=== PATIENT | female | born 1980 | race Caucasian/White ===

== ENCOUNTER 2016-12-05 01:35 | Emergency (ER) | payer BC ==
[2016-12-05 02:24] LABS: Urine Bacteria Absent (Absent); Urine Bilirubin Negative (Negative); Urine Glucose Negative (Negative); Urine Nitrite Negative (Negative)
[2016-12-05] MEDS ORDERED: Phenazopyridine TAB* 100 MG PO ONE (02:48)
[2016-12-05] MEDS ORDERED: Ciprofloxacin TAB* 500 MG PO ONE (02:48)
[2016-12-05 02:58] VITALS: BP 132/74
--- NOTE | 2016-12-05 05:09 | ED ---
Naomi Villegas Alok, scribed for Sami Boss MD on 12/05/16 at 0251 . GI/ HPI - HPI Summary HPI Summary: 36F presents to the ED with sudden onset of urethra pain at 1700 followed by dysuria and hematuria throughout the day. Pt also notes chills. Pt denies vaginal discharge. Pt denies fever or back pain. PMHx includes h/o UTI last had 10/10/16 feeling similar to symptoms today. Pt LMP ended 4 days ago. Pt drinks ETOH occasionally. - History of Current Complaint Chief Complaint: EDUrogenitalProblems Time Seen by Provider: 12/05/16 02:39 Stated Complaint: BLOOD IN URINE/EDGE TO URINATE Hx Obtained From: Patient Onset/Duration: Started Days Ago, Atraumatic, Still Present Timing: Constant Severity: Moderate Current Severity: Moderate Pain Intensity: 8 Location of Pain: Groin - urethra Associated Signs and Symptoms: Positive: Hematuria, Dysuria, Chills, Other: - urethra pain. Negative: Back Pain, Fever Additional Signs & Symptoms: Negative: Vaginal Discharge Aggravating Factor(s): Nothing Alleviating Factor(s): Nothing - Allergy/Home Medications Allergies/Adverse Reactions: Allergies Allergy/AdvReac Type Severity Reaction Status Date / Time Fluconazole [From Diflucan] Allergy See Comment Verified 12/05/16 01:48 Bananas Allergy Intermediate See Comment Uncoded 04/22/12 08:32 Potatoes Allergy Intermediate See Comment Uncoded 04/22/12 08:32 PMH/Surg Hx/FS Hx/Imm Hx Endocrine/Hematology History: Denies: Hx Diabetes, Hx Thyroid Disease Cardiovascular History: Denies: Hx Hypertension Respiratory History: Denies: Hx Asthma, Hx Chronic Obstructive Pulmonary Disease (COPD) GI History: Denies: Hx Ulcer - Surgical History Surgery Procedure, Year, and Place: Tonsil abscess dained. Infectious Disease History: No Infectious Disease History: Denies: Hx Hepatitis, Hx Human Immunodeficiency Virus (HIV), Traveled Outside the [place] in Last 30 Days - Family History Known Family History: Negative: Cardiac Disease, Hypertension, Diabetes - Social History Occupation: Employed Full-time Lives: With Family Alcohol Use: Rare Substance Use Type: Reports: None Smoking Status (MU): Never Smoked Tobacco Review of Systems Positive: Chills. Negative: Fever Positive: dysuria, hematuria, pain - urethra Negative: Other - back pain All Other Systems Reviewed And Are Negative: Yes Physical Exam - Summary Physical Exam Summary: The patient is well-nourished in no acute distress and in no acute pain. The skin is warm and dry and skin color reflects adequate perfusion. HEENT: The head is normocephalic and atraumatic. The pupils are equal and reactive. The conjunctivae are clear and without drainage. Nares are patent and without drainage. Mouth reveals moist mucous membranes and the throat is without erythema and exudate. The external ears are intact. The ear canals are patent and without drainage. The tympanic membranes are intact. Neck is supple with full range of motion and non-tender. There are no carotid bruits. There is no neck vein distension. Respiratory: Chest is non-tender. Lungs are clear to auscultation and breath sounds are symmetrical and equal. Cardiovascular: Heart is regular rate and rhythm. There is no murmur or rub auscultated. There is no peripheral edema and pulses are symmetrical and equal. Abdomen: The abdomen is soft and non-tender. There are normal bowel sounds heard in all four quadrants and there is no organomegaly palpated. No pain over bladder. Musculoskeletal: There is no back pain noted. Extremities are non-tender with full range of motion. There is good capillary refill. There is no peripheral edema or calf tenderness elicited. Neurological: Patient is alert and oriented to person, place and time. The patient has symmetrical motor strength in all four extremities. Cranial nerves are grossly intact. Deep tendon reflexes are symmetrical and equal in all four extremities. Psychiatric: The patient has an appropriate affect and does not exhibit any anxiety or depression. Triage Information Reviewed: Yes Vital Signs On Initial Exam: Initial Vitals Temp Pulse Resp BP Pulse Ox 98.8 F 70 18 120/77 99 12/05/16 01:46 12/05/16 01:46 12/05/16 01:46 12/05/16 01:46 12/05/16 01:46 Vital Signs Reviewed: Yes Diagnostics - Vital Signs Vital Signs Temp Pulse Resp BP Pulse Ox 12/05/16 02:12 98.8 F 70 18 120/77 99 12/05/16 01:46 98.8 F 70 18 120/77 99 - Laboratory Lab Results: Lab Results 12/05/16 Range/Units 01:50 Urine Color Yellow Urine Appearance Cloudy Urine pH 6.0 (5-9) Ur Specific Hitchins 1.017 (1.010-1.030) Urine Protein 2+(100 mg/dl) H (Negative) Urine Ketones Negative (Negative) Urine Blood 3+ H (Negative) Urine Nitrate Negative (Negative) Urine Bilirubin Negative (Negative) Urine Urobilinogen Negative (Negative) Ur Leukocyte Esterase 3+ H (Negative) Urine WBC (Auto) 3+(>20/hpf) H (Absent) Urine RBC (Auto) 3+(>10/hpf) H (Absent) Ur Squamous Epith Cells Present H (Absent) Urine Bacteria Absent (Absent) Urine Glucose Negative (Negative) Lab Statement: Any lab studies that have been ordered have been reviewed, and results considered in the medical decision making process. GIGU Course/Dx - Course Course Of Treatment: 36 y/o female presents with dysuria and hematuria. UA consistent with UTI. Will discharge home with rx for Cipro and Pyridium. - Diagnoses Differential Diagnoses - Female: Cystitis, Urinary Tract Infection Provider Diagnoses: UTI (urinary tract infection) Discharge - Discharge Plan Condition: Stable Disposition: HOME Prescriptions: Ciprofloxacin TAB* [Cipro 500 MG TAB*] 500 mg PO BID #14 tab Phenazopyridine 200 mg (NF) [Pyridium 200 MG tab *] 200 mg PO TID #6 tab Patient Education Materials: Urinary Tract Infection in Women (ED) Referrals: No Primary Care Phys,NOPCP [Primary Care Provider] - The documentation as recorded by the Naomi caro Alok accurately reflects the service I personally performed and the decisions made by Karyn mendoza Drew, MD.
== END 2016-12-05 02:57 | disposition home or self-care (01) ==
LOC: ED 01:35
DX: N39.0 Urinary tract infection, site not specified (principal)
CPT/HCPCS: 81003; 81015; 87077; 87086; 99282; A9270-GY

== ENCOUNTER 2018-12-15 08:20 | Emergency (ER) | payer BC ==
--- OUTSIDE RECORDS SUMMARY | 2018-12-15 08:25 | XMS REPORT | Continuity of Care Document ---
:1980 External Reference #:[id number] Author Name Eva Wooten O.D. Address [address] [place] [address] Care Team Providers Name Role Phone Nia Han M.D. Primary Care Physician Unavailable Payers Date Identification Numbers Payment Provider Subscriber Effective: Policy Number: [id number] [facility] Delmy Stroud 2011 PayID: [id number] [place] [address] Problems Active Problems Provider Date Herpes zoster Nely Damon O.D. Onset: 10/24/2014 Lyme disease Onset: Arthritis Onset: Herpes zoster keratoconjunctivitis All Moreira M.D. Onset: 02/27/2015 Chronic allergic conjunctivitis Eva Wooten O.D. Onset: 12/09/2018 Squamous blepharitis All Moreira M.D. 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 [employer] ETOH Use Occasionally consumed beer in the past Tobacco Use Start: Unknown End: Patient is a former smoker QUIT: 09/20/2016 Unknown Smoking Status Reviewed: 12/09/18 Patient is a former smoker QUIT: 2016 Allergies, Adverse Reactions, Alerts Active Allergies Reaction Severity Comments Date Diflucan 08/16/2014 Potatoes 08/16/2014 Bananas 08/16/2014 Latex 08/16/2014 Tomatoes 05/30/2017 Coconut 05/30/2017 Gold 09/29/2017 Eggs 09/29/2017 Urea 09/29/2017 Medications Active Medications SIG Qnty Indications Ordering Date Provider Olopatadine HCL 1 drop every day 5ml H10.45 Eva Wooten, 12/09/2018 0.1% both eyes as needed O.D. Solution Famciclovir Take 2 Tablets By 60tabs All Garcia 05/31/2016 250mg Mouth Every Day Gloria Moreira Tablets Artificial Tears as needed Eva Wooten, 03/21/2016 O.D. 0.1-0.3% Solution Vitamin C 2 tab by mouth All Garcia 08/15/2014 500mg every day Gloria Moreira Capsules Prednisolone Acetate Instill 1 Drop To 15units All Garcia 07/25/2014 The Right Eye Every Gloria Moreira 1% Suspension Day L-Lysine Unknown 1000mg Tablets Vitamin B12 occasionally Unknown 100mcg Tablets Vitamin D take one Unknown 5000Unit capsule/tablet Tablets daily by mouth Lorazepam prn Unknown 0.5mg Tablets History Medications Erythromycin Apply to all 1Tube H01.021 All Moreira, 10/20/2018 - 5mg/GM four lids at M.DMagdiel 10/22/2018 Ointment bedtime for 3 weeks Autologous Serum prn All Moreira, 02/26/2017 - Gloria 01/28/2018 Famvir take 1 tablet 60tabs Logan 07/25/2014 - 250mg Tablets by mouth twice Gloria De La Garza 08/27/2016 daily Cryselle-28 Unknown - 0.3-30mg-mcg 09/28/2015 Tablets Amoxapine Unknown - 150mg Tablets 09/28/2015 Famotidine Elida, - 40mg Tablets Nadia F.N.P 05/21/2018 Naproxen Elida, - 500mg Tablets Nadia F.N.P 05/27/2018 Cyclobenzaprine HCL Elida, - 10mg Nadia F.N.P 05/27/2018 Tablets Qur-Sf-Fdyzgg Take 1 Tablet Unknown - By Mouth Every 05/20/2018 0.18/0.215/0.25 mg-25 Day mcg Tablets Procedures Date Code Description Status 10/20/2018 27972 Est Patient Intermediate Exam Completed 06/01/2018 41455 Est Patient Intermediate Exam Completed 01/30/2018 33431 Est Patient Intermediate Exam Completed 09/29/2017 90152 Est Patient Intermediate Exam Completed 05/30/2017 51658 Determination Of Refractive State Completed 02/27/2017 89064 Est Patient Intermediate Exam Completed 12/03/2016 50716 Est Patient Intermediate Exam Completed 08/29/2016 41882 Scanning Computerized Ophthalmic Diagnostic Imaging, Completed Anterior 08/29/2016 29361 Est Patient Intermediate Exam Completed 05/31/2016 13640 Est Patient Intermediate Exam Completed 01/30/2016 67846 Est Patient Intermediate Exam Completed 09/29/2015 87179 Est Patient Intermediate Exam Completed 05/26/2015 25013 Est Patient Intermediate Exam Completed 02/27/2015 04498 Est Patient Intermediate Exam Completed 10/24/2014 11416 Est Patient Intermediate Exam Completed 08/16/2014 12695 Est Patient Intermediate Exam Completed 05/16/2014 84382 Est Patient Intermediate Exam Completed 03/22/2013 16930 Est Patient Intermediate Exam Completed 01/18/2013 22563 Est Patient Intermediate Exam Completed 04/07/2012 45868 Photography Ocular External Completed 04/06/2012 58850 Photography Ocular External Completed 11/18/2011 86815 New Patient Intermediate Exam Completed Encounters Type Date Location Provider Dx Diagnosis Office Visit 05/30/2017 All Maza, B02.33 Zoster keratitis 8:00a , demond [place]. Office Visit 01/17/2017 Eva Maza, B02.33 Zoster keratitis 3:00p , demond [place]. Office Visit 03/22/2016 Eva Maza, B02.33 Zoster keratitis 3:30p demond SAMAYOA O.D. Office Visit 03/14/2016 Eva Maza, B02.33 Zoster keratitis 6:15p , demond Dudley. Office Visit 11/28/2014 All Maza, 053.29 Herpes Zoster Other 7:45a demond SAMAYOA M.D. Office Visit 11/07/2014 All Maza, 053.29 Herpes Zoster Other 9:45a demond SAMAYOA M.D. Office Visit 10/27/2014 Nely Maza 053.29 Herpes Zoster Other 8:40a , demond Damon O.D. Office Visit 03/16/2013 All Moreira, Eva EsthelaMagdiel Wooten, 053.9 Herpes Zoster W/O 3:30p demond SAMAYOA O.D. Complication Office Visit 02/18/2013 All Maza, 053.9 Herpes Zoster W/O 8:30a demond SAMAYOA M.D. Complication Office Visit 02/11/2013 All Maza, 053.9 Herpes Zoster W/O 9:15a demond SAMAYOA M.D. Complication Office Visit 02/04/2013 All Maza, 370.20 Superficial 8:45a demond SAMAYOA M.D. Keratitis Unspec Office Visit 01/29/2013 Nely Maza 054.43 Herpes Simplex 4:00p demond SAMAYOA O.D. Disciform Keratitis Office Visit 01/25/2013 Nely Maza 054.43 Herpes Simplex 2:30p demond SAMAYOA O.D. Disciform Keratitis Office Visit 12/28/2012 Nely Maza 054.43 Herpes Simplex 6:00p demond SAMAYOA O.D. Disciform Keratitis Office Visit 12/14/2012 Nely Maza 054.43 Herpes Simplex 8:30a demond SAMAYOA O.D. Disciform Keratitis Office Visit 12/09/2012 Nely Maza 054.43 Herpes Simplex 8:30a demond SAMAYOA O.D. Disciform Keratitis Office Visit 12/04/2012 Nely Maza 053.9 Herpes Zoster W/O 10:20a demond SAMAYOA O.D. Complication Office Visit 12/03/2012 Nely Maza 053.9 Herpes Zoster W/O 9:20a demond SAMAYOA O.D. Complication Office Visit 11/11/2012 Nely Maza 053.9 Herpes Zoster W/O 4:00p demond SAMAYOA O.D. Complication Office Visit 10/26/2012 Nely Maza 053.9 Herpes Zoster W/O 6:10p demond SAMAYOA O.D. Complication Office Visit 09/28/2012 Nely Maza 053.9 Herpes Zoster W/O 8:30a demond SAMAYOA O.D. Complication Office Visit 09/23/2012 Nely Maza 053.9 Herpes Zoster W/O 9:10a demond SAMAYOA O.D. Complication Office Visit 07/22/2012 Nely Maza 053.9 Herpes Zoster W/O 11:10a demond SAMAYOA O.D. Complication Office Visit 06/03/2012 Nely Maza 054.43 Herpes Simplex 6:10p demond SAMAYOA O.D. Disciform Keratitis Office Visit 05/11/2012 Nely Maza 053.9 Herpes Zoster W/O 10:20a demond SAMAYOA O.D. Complication Office Visit 04/20/2012 Nely Maza 053.9 Herpes Zoster W/O 3:40p demond SAMAYOA O.D. Complication Office Visit 04/13/2012 Nely Maza 053.9 Herpes Zoster W/O 9:20a demond SAMAYOA O.D. Complication Office Visit 04/09/2012 All Maza 053.9 Herpes Zoster W/O 8:15a demond SAMAYOA M.D. Complication Office Visit 04/07/2012 All Maza 053.9 Herpes Zoster W/O 12:15p demond SAMAYOA M.D. Complication Office Visit 04/06/2012 Nely Maza 053.9 Herpes Zoster W/O 4:00p , demond Damon O.D. Complication 053.9 Herpes Zoster W/O Complication Office Visit 03/25/2012 8:30a All Garcia 053.9 Herpes Zoster W/O MD Harish, demond Damon O.D. Complication Office Visit 03/20/2012 8:30a All Garcia 053.9 Herpes Zoster W/O MD Harish, demond Damon O.D. Complication Office Visit 03/16/2012 9:10a All Garcia 053.9 Herpes Zoster W/O MD Harish, demond Damon O.D. Complication Office Visit 03/14/2012 11:15a All Burns 053.9 Herpes Zoster W/O MD Harish, demond Newton Complication Office Visit 03/13/2012 10:20a All Garcia 053.9 Herpes Zoster W/O MD Harish, demond Damon O.D. Complication Office Visit 02/10/2012 3:30p All Raymundo, 371.00 Corneal Opacity MD Harish, demond MBlake Unspec Office Visit 12/30/2011 9:00a All Raymundo, 053.9 Herpes Zoster W/O MD Harish, demond Castro Complication Office Visit 12/09/2011 8:30a All Raymundo, 053.9 Herpes Zoster W/O MD Harish, demond MBlake Complication Office Visit 11/25/2011 9:00a All Raymundo 053.9 Herpes Zoster W/O MD Harish, demond MBlake Complication Plan of Treatment Future Appointment(s):04/22/2019 8:45 am - All Moreira M.D. at All Moreira MD, 12/09/2018 - Eva Wooten O.D.B02.33 Zoster keratitisComments: Smoking can increase the risk of developing or worsening any eye related disease , as well as affect your overall health. If you are a smoker, we strongly recommend that you quit.If you are not a smoker, we strongly recommend that you do not start. increase steroid to every 2 hours for 2 days, then 4times a day in the right eyeFollow up:OadncjokG29.45 Other chronic allergic conjunctivitisNew Medication:Olopatadine HCL 0.1 % - 1 drop every day both eyes as neededComments:You have Allergic Conjunctivitis in your left eye. Your symptoms can be aggravated by rubbing your eyes. Dr. Wooten recommends you use tear drops and a cold compress to alleviate your symptoms. Dr. Wooten may also prescribe medication if necessary.
--- OUTSIDE RECORDS SUMMARY | 2018-12-15 08:25 | XMS REPORT | Continuity of Care Document ---
:1980 External Reference #:[id number] Author Name Eva Wooten O.D. Address [address] [place] [address] Care Team Providers Name Role Phone Nia Han M.D. 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[employer] ETOH Use Occasionally consumed beer in the past Tobacco Use Start: Unknown End: Patient is a former smoker QUIT: 09/20/2016 Unknown Smoking Status Reviewed: 12/12/18 Patient is a former smoker QUIT: 2016 [...] 15units All Garcia 07/25/2014 The Right Eye 4 Gloria Moreira 1% Suspension Times A Day L-Lysine Unknown 1000mg Tablets Vitamin B12 occasionally Unknown 100mcg Tablets Vitamin D take one Unknown 5000Unit capsule/tablet Tablets daily by mouth Lorazepam prn Unknown 0.5mg Tablets History Medications Erythromycin Apply to all 1Tube H01.021 All Moreira, 10/20/2018 - 5mg/GM four lids at M.DMagdiel 10/22/2018 Ointment bedtime for 3 weeks Autologous Serum prn All Moreira, 02/26/2017 - MBlake 01/28/2018 Famvir take 1 tablet 60tabs Logan 07/25/2014 - 250mg Tablets by mouth twice Gloria De La Garza 08/27/2016 daily Cryselle-28 Unknown - 0.3-30mg-mcg 09/28/2015 Tablets Amoxapine Unknown - 150mg Tablets 09/28/2015 Famotidine Elida, - 40mg Tablets Nadia F.N.P 05/21/2018 Naproxen Elida, - 500mg Tablets Nadia F.N.P 05/27/2018 Cyclobenzaprine HCL Elida, - 10mg Nadia F.N.P 05/27/2018 Tablets Xjg-Vd-Ooyysb Take 1 Tablet Unknown - By Mouth Every 05/20/2018 0.18/0.215/0.25 mg-25 Day mcg Tablets Procedures Date Code Description Status 12/09/2018 47873 Est Patient Comprehensive Exam Completed 10/20/2018 56721 Est Patient Intermediate Exam Completed 06/01/2018 55801 Est Patient Intermediate Exam Completed 01/30/2018 15131 Est Patient Intermediate Exam Completed 09/29/2017 88294 Est Patient Intermediate Exam Completed 05/30/2017 13054 Determination Of Refractive State Completed 02/27/2017 16288 Est Patient Intermediate Exam Completed 12/03/2016 83403 Est Patient Intermediate Exam Completed 08/29/2016 83903 Scanning Computerized Ophthalmic Diagnostic Imaging, Completed Anterior 08/29/2016 80334 Est Patient Intermediate Exam Completed 05/31/2016 09220 Est Patient Intermediate Exam Completed 01/30/2016 09074 Est Patient Intermediate Exam Completed 09/29/2015 35350 Est Patient Intermediate Exam Completed 05/26/2015 80281 Est Patient Intermediate Exam Completed 02/27/2015 42591 Est Patient Intermediate Exam Completed 10/24/2014 61762 Est Patient Intermediate Exam Completed 08/16/2014 92293 Est Patient Intermediate Exam Completed 05/16/2014 46084 Est Patient Intermediate Exam Completed 03/22/2013 17658 Est Patient Intermediate Exam Completed 01/18/2013 56737 Est Patient Intermediate Exam Completed 04/07/2012 49015 Photography Ocular External Completed 04/06/2012 74419 Photography Ocular External Completed 11/18/2011 31983 New Patient Intermediate Exam Completed Encounters Type Date Location Provider Dx Diagnosis Office Visit 05/30/2017 All Maza, B02.33 Zoster keratitis 8:00a demond SAMAYOA MBlake Office Visit 01/17/2017 Eva Maza, B02.33 Zoster keratitis 3:00p demond SAMAYOA O.D. Office Visit 03/22/2016 Eva Maza, B02.33 Zoster keratitis 3:30p demond SAMAYOA O.D. Office Visit 03/14/2016 Eva Maza, B02.33 Zoster keratitis 6:15p MD, pc O.D. Office Visit 11/28/2014 All Maza, 053.29 Herpes Zoster Other 7:45a demond SAMAYOA M.D. Office Visit 11/07/2014 All Maza, 053.29 Herpes Zoster Other 9:45a demond SAMAYOA M.D. Office Visit 10/27/2014 Nely Maza 053.29 Herpes Zoster Other 8:40a , demond Damon O.D. Office Visit 03/16/2013 All Moreira Eva Apple Je, 053.9 Herpes Zoster W/O 3:30p demond SAMAYOA [...] Nely Maza 054.43 Herpes Simplex 2:30p demond SAMAYAO O.D. Disciform Keratitis Office Visit 12/28/2012 Nely [...] W/O Complication Office Visit 03/25/2012 8:30a All Pepe3.Chantal Herpes Oli W/O MD Harish, demond Damon O.D. Complication Office Visit 03/20/2012 8:30a All Pepe3.Chantal Herpes Zoster W/O MD Harish, demond Damon O.D. Complication Office Visit 03/16/2012 9:10a All Pepe3.Chantal Herpes Oli W/O MD Harish, demond Damon O.D. Complication Office Visit 03/14/2012 11:15a All Burns 053.9 Herpes Oli W/O MD Harish, demond Newton Complication Office Visit 03/13/2012 10:20a All Pepe3.9 Herpes Zoster W/O MD Harish, demond Damon O.D. Complication Office Visit 02/10/2012 3:30p All Raymundo, 371.00 Corneal Opacity MD Harish, demond MBlake Unspec Office Visit 12/30/2011 9:00a All Raymundo, 053.9 Herpes Oli W/O MD Harish, demond Castro Complication Office Visit 12/09/2011 8:30a All Raymundo, 053.Chantal Herpes Oli W/O MD Harish, demond MBlake Complication Office Visit 11/25/2011 9:00a My Vogt3.Chantal Herpes Zoster W/O MD Harish, demond MBlake Complication Plan of Treatment Future Appointment(s):04/22/2019 8:45 am - All Moreira M.D. at All Moreira MD, 12/12/2018 - Eva Wooten O.D.B02.33 Zoster keratitisComments: Smoking can increase the risk of developing or worsening any eye related disease , as well as affect your overall health. If you are a smoker, we strongly recommend that you quit.If you are not a smoker, we strongly recommend that you do not start. continue taking the pred forte drops 4 times a day in the right eyecontinue olopatadine drops in the left eyeif your symptoms worsen, please call the office to be seenFollow up:Friday or sooner as needed
[2018-12-15 08:44] VITALS: BP 97/57
--- NOTE | 2018-12-15 09:58 | UC ---
Complaint Female HPI - HPI Summary HPI Summary: 38 yo female presents with urinary frequency and burning since last night. She tells me that she has a history of UTIs that happen almost every time after she has intercourse. She has not had intercourse in a few months, but did so a few days ago and last night developed urinary symptoms. She has noticed some blood in her urine, which is common for her when she gets UTIs. Denies abdominal pain , n/v, flank pain, vaginal bleeding or discharge. - History Of Current Complaint Chief Complaint: UCGU Stated Complaint: URINE ISSUE Time Seen by Provider: 12/15/18 09:50 Hx Obtained From: Patient Hx Last Menstrual Period: 11/29/18 Onset/Duration: Sudden Onset Timing: Constant Severity Initially: Moderate Severity Currently: Moderate Pain Intensity: 5 Pain Scale Used: 0-10 Numeric - Allergies/Home Medications Allergies/Adverse Reactions: Allergies Allergy/AdvReac Type Severity Reaction Status Date / Time coconut Allergy Rash Verified 12/15/18 08:45 fluconazole [From Diflucan] Allergy Hives Verified 12/15/18 08:40 gold Au 198 Allergy Rash Verified 12/15/18 08:46 urea [From Ureacin-10] Allergy unk Verified 12/15/18 08:45 Bananas Allergy Intermediate See Comment Uncoded 12/15/18 08:40 Potatoes Allergy Intermediate See Comment Uncoded 12/15/18 08:40 PMH/Surg Hx/FS Hx/Imm Hx - Additional Past Medical History Additional PMH: None - Surgical History Surgical History: Yes Surgery Procedure, Year, and Place: Tonsil abscess dained.anal fissure - Family History Known Family History: Negative: Cardiac Disease, Hypertension, Diabetes - Social History Lives: With Family Alcohol Use: None Substance Use Type: Marijuana Smoking Status (MU): Former Smoker Review of Systems All Other Systems Reviewed And Are Negative: Yes Constitutional: Positive: Negative Skin: Positive: Negative Respiratory: Positive: Negative Cardiovascular: Positive: Negative Genitourinary: Positive: Dysuria, Hematuria, Frequency, Urgency Musculoskeletal: Positive: Negative Neurological: Positive: Negative Psychological: Positive: Negative Physical Exam - Summary Physical Exam Summary: GENERAL: NAD. WDWN. No pain distress. SKIN: No rashes, sores, lesions, or open wounds. NECK: Supple. Nontender. No lymphadenopathy. CHEST: CTAB. No r/r/w. No accessory muscle use. Breathing comfortably and in no distress. CV: RRR. Without m/r/g. Pulses intact. Cap refill <2seconds ABDOMEN: Soft. NTTP. No distention or guarding. No CVA tenderness. Bowel sounds present NEURO: Alert. PSYCH: Age appropriate behavior. Triage Information Reviewed: Yes Vital Signs: Initial Vital Signs Temp 98 F 12/15/18 08:42 Pulse 66 12/15/18 08:42 Resp 16 12/15/18 08:42 BP 97/57 12/15/18 08:42 Pulse Ox 100 12/15/18 08:42 Vital Signs Reviewed: Yes Complaint Female Dx - Course Course Of Treatment: UA positive. Will send her urine for culture and treat with macrobid - Differential Dx/Diagnosis Provider Diagnosis: UTI (urinary tract infection) Discharge - Sign-Out/Discharge Documenting (check all that apply): Patient Departure All imaging exams completed and their final reports reviewed: No Studies - Discharge Plan Condition: Stable Disposition: HOME Prescriptions: Nitrofurantoin Monohyd/M-Cryst [Macrobid 100 mg Capsule] 100 mg PO BID #10 cap Phenazopyridine 200 mg (NF) [Pyridium 200 MG tab *] 200 mg PO TID #6 tab Patient Education Materials: Urinary Tract Infection in Women (ED) Referrals: Nia Han MD [Primary Care Provider] - Additional Instructions: If you develop a fever, shortness of breath, chest pain, new or worsening symptoms - please call your PCP or go to the ED immediately. - Billing Disposition and Condition Condition: STABLE Disposition: Home
== END 2018-12-15 10:09 | disposition home or self-care (01) ==
LOC: UCEAST 08:20
DX: N39.0 Urinary tract infection, site not specified (principal); Z87.891 Personal history of nicotine dependence
CPT/HCPCS: 81002; 87077; 87086; 87186; 99212; G0463